=== PATIENT | female | born 1975 | race Caucasian/White ===

== ENCOUNTER 2024-09-04 08:47 | Outpatient (CLI) | payer OTHER, SELFPAY ==
--- NOTE | 2024-09-04 10:07 | P.ANES_ITS ---
Anesthesia Charges Start Date/Time Anesthesia Start Date: 09/04/24 Anesthesia Start Time: 09:35 Stop Date/Time Anesthesia Stop Date: 09/04/24 Anesthesia Stop Time: 10:05 Coding CPT Codes CPT Codes: MARIELY JOHNSON INTST NDSC NOS - [id number] ([id number]) P2 - PATIENT W/MILD SYST DISEASE, QX - MIDDLE SCHOOL VOLLEYBALL COACH SVC W/ MD MED DIRECTION, QK - DATA WAREHOUSING ENGINEER 2-4 CNCRNT MARIELY PROC
--- NOTE | 2024-09-04 10:07 | W.ANESCHARGE ---
Anesthesia Charges Start Date/Time Anesthesia Start Date: 09/04/24 Anesthesia Start Time: 09:35 Stop Date/Time Anesthesia Stop Date: 09/04/24 Anesthesia Stop Time: 10:05 Coding CPT Codes CPT Codes: MARIELY JOHNSON INTST NDSC NOS - [id number] ([id number]) P2 - PATIENT W/MILD SYST DISEASE, QX - AGED OR DISABLED CARE WORKER SVC W/ MD MED DIRECTION, QK - PRIMER POWDER BLENDER WET 2-4 CNCRNT MARIELY PROC
--- NOTE | 2024-09-04 10:18 | P.ANES_ITS ---
Anesthesia Charges Start Date/Time Anesthesia Start Date: 09/04/24 Anesthesia Start Time: 09:35 Stop Date/Time Anesthesia Stop Date: 09/04/24 Anesthesia Stop Time: 10:05 Coding CPT Codes CPT Codes: MARIELY LWR INTST NDSC NOS - [id number] ([id number]) P2 - PATIENT W/MILD SYST DISEASE, QK - DRAWING IN HAND 2-4 CNCRNT ANES PROC, QX - FACILITY OPERATIONS MANAGER SVC W/ MD MED DIRECTION
--- NOTE | 2024-09-04 10:18 | W.ANESCHARGE ---
Anesthesia Charges Start Date/Time Anesthesia Start Date: 09/04/24 Anesthesia Start Time: 09:35 Stop Date/Time Anesthesia Stop Date: 09/04/24 Anesthesia Stop Time: 10:05 Coding CPT Codes CPT Codes: MARIELY LWR INTST NDSC NOS - [id number] ([id number]) P2 - PATIENT W/MILD SYST DISEASE, QK - COUNTER CHECKER 2-4 CNCRNT ANES PROC, QX - INSPECTOR SET UP AND LAY OUT SVC W/ MD MED DIRECTION
== END 2024-09-04 08:48 | disposition home or self-care (01) ==
PROVIDERS: PCP Family Medicine; Visit Provider Surgery
DX: Z12.11 Encounter for screening for malignant neoplasm of colon (principal); D12.5 Benign neoplasm of sigmoid colon
CPT/HCPCS: 00811; 45380; 88305; J2704

== ENCOUNTER 2025-01-19 13:42 | Outpatient (CLI) | payer OTHER, SELFPAY ==
--- NOTE | 2025-01-19 14:00 | CRLHL7_ITS ---
For Patients: As a result of the Century Cures Act, medical imaging exams and procedure reports are released immediately into your electronic medical record. You may view this report before your referring provider. If you have questions, please contact your health care provider. INDICATION: BILATERAL SCREENING MAMMOGRAM, ASYMPTOMATIC 49 Y/O FEMALE COMPARISON: 09/01/2021, 08/15/2020, 04/03/2019 TECHNIQUE: Digital mammogram in CC and MLO projections including computer-aided detection (CAD) and tomosynthesis. BREAST COMPOSITION: The breasts are heterogeneously dense, which may obscure small masses. FINDINGS: No suspicious findings. ASSESSMENT: BI-RADS 1 Negative RECOMMENDATION: Annual screening mammogram. A lay language report of this examination will be provided to the patient. Dictated by: William Griffin MD @ 01/23/2025 08:50:54 (Electronically Signed)
== END 2025-01-19 13:43 | disposition home or self-care (01) ==
LOC: MAMMO 13:42
PROVIDERS: PCP Family Medicine; Visit Provider Obstetrics & Gynecology
DX: Z12.31 Encounter for screening mammogram for malignant neoplasm of breast (principal); R92.333 Mammographic heterogeneous density, bilateral breasts
CPT/HCPCS: 77063; 77067